=== PATIENT | male | born 2000 | race Caucasian/White ===

== ENCOUNTER 2019-03-10 12:36 | Emergency (ER) | payer OTHER ==
[2019-03-10 13:12] VITALS: BP 113/64
--- NOTE | 2019-03-10 13:34 | UC ---
Throat Pain/Nasal Jose Antonio HPI - HPI Summary HPI Summary: 18 y/o male presents to the urgent care c/o nasal congestion w/ green nasal discharge and pressure for the past 10 days. Pt states sinus pressure, sinus pain and L ear pain and decrease hearing since yesterday. Pain is 6/10. He has been taking Sudafed PO to alleviate symptoms w/o any improvement. Pt denies fever, cough, dizziness, SOB, chest pain, abdominal pain, N/V/D. - History of Current Complaint Chief Complaint: UCRespiratory Stated Complaint: SINUS ISSUE Time Seen by Provider: 03/10/19 13:33 Hx Obtained From: Patient Onset/Duration: Gradual Onset, Lasting Days - 10 days, Still Present, Worse Since - 3 days w left side ear pain and sinus pain Severity: Moderate Pain Intensity: 6 - ear pain Pain Scale Used: 0-10 Numeric Cough: None Associated Signs & Symptoms: Positive: Sinus Discomfort, Nasal Discharge - green. Negative: Dysphagia, Wheezing, Fever - Epiglottits Risk Factors Epiglottis Risk Factors: Negative - Allergies/Home Medications Allergies/Adverse Reactions: Allergies Allergy/AdvReac Type Severity Reaction Status Date / Time No Known Allergies Allergy Verified 03/10/19 13:12 Home Medications: Home Medications Dextroamphetamine/Amphetamine [Adderall Xr 20 mg Capsule] 25 mg PO DAILY [History Confirmed 03/10/19] PMH/Surg Hx/FS Hx/Imm Hx Previously Healthy: Yes - Pt denies PMHX - Surgical History Surgical History: None - Family History Known Family History: Positive: None - Pt denies FMHX - Social History Occupation: Student Lives: With Family Alcohol Use: Occasionally Substance Use Type: None Smoking Status (MU): Never Smoked Tobacco - Immunization History Vaccination Up to Date: Yes Review of Systems All Other Systems Reviewed And Are Negative: Yes Constitutional: Positive: Negative Skin: Positive: Negative Eyes: Positive: Negative ENT: Positive: Ear Ache - left ear pain, Nasal Discharge - green, Sinus Congestion, Sinus Pain/Tenderness - left side of face, Other - green PND Respiratory: Positive: Negative Cardiovascular: Positive: Negative Gastrointestinal: Positive: Negative Genitourinary: Positive: Negative Motor: Positive: Negative Neurovascular: Positive: Negative Musculoskeletal: Positive: Negative Neurological: Positive: Headache Psychological: Positive: Negative Is Patient Immunocompromised?: No Physical Exam - Summary Physical Exam Summary: Vitals: reviewed General: Well developed, well-nourished male patient with NAD. Head and face: Normocephalic and atraumatic, Positive tenderness over the frontal and maxillary sinuses.LF>RT Eyes: PERRLA, EOMI x 2. Normal conjunctiva. No eye discharge. ENT: Left external ear canal impacted w/ cerumen and unable to observe left TM. RT external ear canal w/ mild cerumen, RT TM with normal limits. Nose: edematous and erythematous nasal mucosa with with green discharge and erythematous mucosa. Pharynx with erythema, no exudate. green PND Neck: Supple, no JVD, no carotid bruits and no lymphadenopathy. Lungs: clear, no rales, no rhonchi, no wheezes. CVS: RRR, S1 and S2 present no murmurs or gallops appreciated. Abdomen: soft nontender with positive bowel sounds. Extremities: no edema noted. Neuro: WNL. Skin: warm and dry Triage Information Reviewed: Yes Vital Signs: Initial Vital Signs Temp 98.1 F 03/10/19 13:08 Pulse 81 03/10/19 13:08 Resp 18 03/10/19 13:08 BP 113/64 03/10/19 13:08 Pulse Ox 100 03/10/19 13:08 Throat Pain/Nasal Course/Dx - Course Course Of Treatment: 18 y/o male presents to the urgent care c/o nasal congestion w/ green nasal discharge and pressure for the past 10 days. Pt states sinus pressure, sinus pain and L ear pain and decrease hearing since yesterday. Pain is 6/10. He has been taking Sudafed PO to alleviate symptoms w/o any improvement. Pt denies fever, cough, dizziness, SOB, chest pain, abdominal pain, N/V/D. Hx obtained. Pt w/ left external ear canal impacted w/ cerumen and left anterior cervical and preauricular lymphadenopathy and bacterial sinusitis on examination. Left ear irrigation ordered. Irrigation performed by Nurse. Pt tolerated well procedure w/o any adverse effect. Left external clear and LF TM injected w/ erythema, no light reflex, no perforation. Pt Rx Amoxicillin PO and Flonase nasal spray as directed below. Advised to continue w/ Ibuprofen for alleviate otalgia. Pt advised if not improvement of symptoms in 2-3 days to return to the clinic or f/u w/ PCP for further treatment. Pt understood and agreed w/ plan of care. - Differential Dx/Diagnosis Differential Diagnosis/HQI/PQRI: Influenza, Mononucleosis, Pharyngitis, Sinusitis, Tonsillitis, URI Provider Diagnosis: Acute bacterial sinusitis, Left ear impacted cerumen, Left otitis media Discharge ED - Sign-Out/Discharge Documenting (check all that apply): Patient Departure - D/c hopme All imaging exams completed and their final reports reviewed: No Studies - Discharge Plan Condition: Stable Disposition: HOME Prescriptions: Amoxicillin PO (*) [Amoxicillin 875 MG (*)] 875 mg PO BID #20 tab Fluticasone NASAL SPRAY 50MCG* [Flonase NASAL SPRAY 50MCG*] 2 spray BOTH NARES DAILY #1 btl Patient Education Materials: Sinusitis (ED), Ear Infection (ED) Forms: *Work Release Referrals: No Primary Care Phys,NOPCP [Primary Care Provider] - Additional Instructions: 1- Please increase fluid intake and rest. take full course of antibiotics to avoid resistance. Take yogurts w/ probiotics or Culturelle to protect your GI system 2-Use Flonase as directed to help drain fluid. Also buy saline drops to clear sinuses 3-Continue taking Sudafed PO to alleviates sinus congestion 4- Conmtinue taking Ibuprofen or Tylenol PO q6-8hr after meals to alleviate ear pain, [place] or sinus pain. 5-Please f/u w/ your PCP in 3 days if symptoms do not improve for further management and treatment - Billing Disposition and Condition Condition: STABLE Disposition: Home
== END 2019-03-10 15:00 | disposition home or self-care (01) ==
LOC: UCEAST 12:36
DX: J01.90 Acute sinusitis, unspecified (principal); B96.89 Other specified bacterial agents as the cause of diseases classified elsewhere; H66.92 Otitis media, unspecified, left ear; H61.22 Impacted cerumen, left ear
CPT/HCPCS: 99203; G0463